=== PATIENT | male | born 1945 | race Caucasian/White ===

== ENCOUNTER 2016-10-05 09:28 | Day surgery (SDC) | payer MEDICARE ==
--- NOTE | ~2016-10-05 | EGD ---
EGD REPORT [facility] [address] [place] [address] NAME: JAMEY OLIVER : [birth year] STATUS : [place] [facility] PAT#: [id number] AGE: 71 ADM/REG DATE : 10/05/16 MR#: [id number] REPORT SERV DATE: 10/05/16 DICTATED BY: BERTHA TAVERAS DATE: 10/05/16 REPORT STATUS : Draft [facility] DATE: 10/05/16 [facility] Patient Name: Jamey Oliver Date of : 1945 Attending MD: BERTHA TAVERAS MD Procedure Date No Time: 10/05/2016 Procedure: Colonoscopy Indications: Follow-up of chronic ulcerative pancolitis Referring MD: TESS CHRISTY MD, BLAIRE ANTON Medicines: Propofol per Anesthesia Complications: No immediate complications. Estimated blood loss: None. Procedure: Pre-Anesthesia Assessment: - After reviewing the risks and benefits, the patient was deemed in satisfactory condition to undergo the procedure. - Prior to the procedure, a History and Physical was performed, and patient medications and allergies were reviewed. The patient's tolerance of previous anesthesia was also reviewed. The risks and benefits of the procedure and the sedation options and risks were discussed with the patient. All questions were answered, and informed consent was obtained. Prior Anticoagulants: The patient has taken no previous anticoagulant or antiplatelet agents. ASA Grade Assessment: III - A patient with severe systemic disease. After reviewing the risks and benefits, the patient was deemed in satisfactory condition to undergo the procedure. After I obtained informed consent, the scope was passed under direct vision. Throughout the procedure, the patient's blood pressure, pulse, and oxygen saturations were monitored continuously. The CF [id number] was introduced through the anus and advanced to the cecum, identified by appendiceal orifice and ileocecal valve. The colonoscopy was performed without difficulty. The ileocecal valve and appendiceal orifice were photographed. The patient tolerated the procedure well. The quality of the bowel preparation was good. The bowel preparation used was split dose polyethylene glycol (PEG). Scope withdrawal time was greater than 10 minutes. Findings: The perianal and digital rectal examinations were normal. Pertinent negatives include normal sphincter tone. Non-bleeding internal hemorrhoids were found during retroflexion and were medium-sized and Grade I (internal hemorrhoids that do not EGD REPORT [place] [id number] [facility] [place]. [address] NAME: JAMEY OLIVER : [birth year] STATUS : [place] [facility] PAT#: [id number] AGE: 71 ADM/REG DATE : 10/05/16 MR#: [id number] REPORT SERV DATE: 10/05/16 DICTATED BY: BERTHA TAVERAS DATE: 10/05/16 REPORT STATUS : Draft TRANSCRIBED BY: [employer] DATE: 10/05/16 prolapse). Diffuse mild inflammation characterized by congestion (edema) and granularity was found in the rectum, in the sigmoid colon, in the descending colon, in the transverse colon, in the ascending colon and in the cecum. Biopsies were taken with a cold forceps for histology. Estimated blood loss: none. Impression: - Non-bleeding internal hemorrhoids. - Diffuse mild inflammation was found in the rectum, in the sigmoid colon, in the descending colon, in the transverse colon, in the ascending colon and in the cecum secondary to pancolitis ulcerative colitis. Biopsied. Recommendation: - Discharge patient to home (ambulatory). - Return to previous diet. - Continue present medications including Apriso 1.5 grams daily. - Await pathology results. - Repeat colonoscopy in 1 year for screening purposes. - Patient has a contact number available for emergencies. The signs and symptoms of potential delayed complications were discussed with the patient. Return to normal activities tomorrow. Written discharge instructions were provided to the patient. Procedure Code(s): --- Professional --- 76620, Colonoscopy, flexible, proximal to splenic flexure; with biopsy, single or multiple Diagnosis Code(s): --- Professional --- K64.0, First degree hemorrhoids K51.00, Ulcerative (chronic) pancolitis without complications CPT copyright 2013 [employer]. All rights reserved. The codes documented in this report are preliminary and upon surgical coder review may be revised to meet current compliance requirements. BERTHA TAVERAS MD 10/05/2016 12:24 PM This report has been signed electronically. Number of Addenda: 0 EGD REPORT [facility] [address] [address] NAME: JAMEY OLIVER : [birth year] STATUS : [place] [facility] PAT#: [id number] AGE: 71 ADM/REG DATE : 10/05/16 MR#: [id number] REPORT SERV DATE: 10/05/16 DICTATED BY: BERTHA TAVERAS DATE: 10/05/16 REPORT STATUS : Draft TRANSCRIBED BY: [employer] DATE: 10/05/16 Note Initiated On: 10/05/2016 11:48 AM Scope Withdrawal Time 0 hours 10 minutes 46 seconds [address] [id number]
[~2016-10-05 09:28] MED LIST: 8 HOUR650 MG PO; ADVAIR250 INH; ALLEGRA180 PO; ALTACE10 MG PO; APRISO0.375 GM PO; ATROVENTUD INH; BENICAR40 PO; CARDU4 PO; CEFAZ500 IM; CELEXA40 MG PO; COLAZAL750 MG PO; COMBIVENT RESPIM4 GM INH; COREG12 PO; DEMA20 PO; DIOV160 PO; DULERA 100 MCG/13 GM INH; FLOMAX4 PO; FOLIC ACID400 MC1 PO; I40 PO; IMDUR30; KLOR-CON M2020 MEQ PO; L20 PO; MAGOX4 PO; PRILO PO; TEKTUR150 PO; TEKTURNA300 MG PO; TYLOX1 CAP PO; VITAMIN D1000 UNI1 PO; [UNRECOGNIZED DRUG - OTHER]
[2017-01-19] MEDS ORDERED: IMDUR30 PO (18:09)
[2017-01-19] MEDS ORDERED: COREG12 PO (18:09)
[2017-01-19] MEDS ORDERED: APRISO0.375 GM PO (18:09)
[2017-01-19] MEDS ORDERED: PRILO PO (18:10)
[2017-01-19] MEDS ORDERED: ADVAIR250 INH (18:10)
[2017-01-19] MEDS ORDERED: CARDU4 PO (18:10)
[2017-01-19] MEDS ORDERED: ALTACE10 MG PO (18:10)
[2017-01-19] MEDS ORDERED: COMBIVENT RESPIM4 GM INH (18:11)
[2017-01-19] MEDS ORDERED: ACET500CAP PO (18:11)
[2017-01-19] MEDS ORDERED: CELEXA40 MG PO (18:11)
[2017-01-19] MEDS ORDERED: ALLEGRA180 PO (18:12)
[2017-01-19] MEDS ORDERED: FOLIC ACID PO (18:12)
[2017-01-19] MEDS ORDERED: DUONEB INH (18:12)
[2017-01-19] MEDS ORDERED: VISINE TEARS15 ML OPH (18:13)
== END 2016-10-05 23:59 | disposition home or self-care (01) ==
LOC: DMU 09:28
PROVIDERS: Internal Medicine Gastroenterology
PROC: 0DBM8ZX Excision of Descending Colon, Via Natural or Artificial Opening Endoscopic, Diagnostic (ICD-10-PCS; 2016-10-05)
PROC: 0DBN8ZX Excision of Sigmoid Colon, Via Natural or Artificial Opening Endoscopic, Diagnostic (ICD-10-PCS; 2016-10-05)
PROC: 0DBL8ZX Excision of Transverse Colon, Via Natural or Artificial Opening Endoscopic, Diagnostic (ICD-10-PCS; 2016-10-05)
PROC: 0DBH8ZX Excision of Cecum, Via Natural or Artificial Opening Endoscopic, Diagnostic (ICD-10-PCS; principal; 2016-10-05 11:00)
DX: K51.00 Ulcerative (chronic) pancolitis without complications (principal); K64.0 First degree hemorrhoids; I12.9 Hypertensive chronic kidney disease with stage 1 through stage 4 chronic kidney disease, or unspecified chronic kidney disease; N18.3 Chronic kidney disease, stage 3 (moderate); J44.9 Chronic obstructive pulmonary disease, unspecified; G47.33 Obstructive sleep apnea (adult) (pediatric); Z99.81 Dependence on supplemental oxygen; Z88.2 Allergy status to sulfonamides; Z88.1 Allergy status to other antibiotic agents; Z88.8 Allergy status to other drugs, medicaments and biological substances; Z98.890 Other specified postprocedural states
CPT/HCPCS: 88305